=== PATIENT | female | born 1975 | race Native Hawaiian/Other Pacific Islander ===

== ENCOUNTER → 2017-10-14 | Outpatient (CLI) | payer OTHER | LOC: RAD 08:29 → EH 08:29 | DX: Z02.1 Encounter for pre-employment examination (principal) ==

== ENCOUNTER → 2018-06-28 | Outpatient (CLI) | payer OTHER | LOC: CAT 14:43 | DX: N83.292 Other ovarian cyst, left side (principal); K42.9 Umbilical hernia without obstruction or gangrene; N83.8 Other noninflammatory disorders of ovary, fallopian tube and broad ligament; R59.9 Enlarged lymph nodes, unspecified ==

== ENCOUNTER → 2018-07-14 | Outpatient (CLI) | payer OTHER | LOC: ULTRA 07:27 | DX: N83.202 Unspecified ovarian cyst, left side (principal); N83.201 Unspecified ovarian cyst, right side ==